=== PATIENT | male | born 1985 | race African-American/Black ===

== ENCOUNTER 2019-03-15 09:54 | Inpatient (IN) | payer OTHER ==
[~2019-03-15] VITALS: Ht 182.9 cm; Wt 86.6 kg
--- NOTE | 2019-03-15 10:04 | NUR ---
patient [id number], from the street, c/o RLQ pain radiating to lower back, +nause vomiting, and diarrhea x 4 days, patient states probably from the tamales I ate. On room air, breathing evenly and unlabored. connected to the monitor and pulse ox. kept comfortable, will continue to monitor accordingly.
[2019-03-15 10:17] LABS: BASOPHILS % (AUTO) 0.4 % (0.0-2.0); EOSINOPHILS % (AUTO) 2.6 % (0.0-6.0); HEMATOCRIT 51 % (39-51); HEMOGLOBIN 17.2 g/dL (13.5-17.5); LYMPHOCYTES # (AUTO) 1.3 /CMM (0.8-4.8); LYMPHOCYTES % (AUTO) 24.4 % (20.0-44.0); MEAN CORPUSCULAR HGB CONC 34 g/dl (31.0-36.0); MEAN CORPUSCULAR VOLUME 90 fL (80-96); MONOCYTES # (AUTO) 0.5 /CMM (0.1-1.30); MONOCYTES % (AUTO) 10.4 % (2.0-12.0); NEUTROPHILS # (AUTO) 3.2 /CMM (1.8-8.9); NEUTROPHILS % (AUTO) 62.2 % (43.0-81.0); PLATELET COUNT (AUTO) 414 /CMM (150-450); RED BLOOD CELL COUNT(AUTO) 5.61 MIL/uL (4.5-6.0); WHITE BLOOD COUNT (AUTO) 5.1 K/uL (4.3-11.0)
[2019-03-15] MEDS ORDERED: ONDANSETRON HCL/PF 4 MG/2 ML VIAL ONE ×2 (10:18→10:30)
[2019-03-15] MEDS ORDERED: MORPHINE SULFATE INJ 4 MG/ML DISP.SYRIN ONE (10:19)
[2019-03-15 10:25] LABS: CALCIUM, SERUM 9.4 mg/dL (8.5-10.1); CREATININE 1.1 mg/dL (0.6-1.3); POTASSIUM 4.2 mmol/L (3.5-5.1)
[2019-03-15 10:30] LABS: ALBUMIN 4.1 g/dL (3.4-5.0); BILIRUBIN,DIRECT 0.1 mg/dL (0.0-0.2); BILIRUBIN,TOTAL 0.5 mg/dL (0.2-1.0); TOTAL PROTEIN, SERUM 8.8 g/dL (6.4-8.2)
[2019-03-15] MEDS ORDERED: MORPHINE SULFATE INJ 2 MG/ML DISP.SYRIN IV ONE (10:30)
[2019-03-15] MEDS ORDERED: ONDANSETRON HCL/PF 4 MG/2 ML VIAL IVP ONE (10:30)
[2019-03-15] MEDS ORDERED: IV NS 0.9% 1,000 ML BAG IV ONE ×2 (10:30→12:30)
[2019-03-15] MEDS ORDERED: MORPHINE SULFATE INJ 2 MG/ML DISP.SYRIN ONE (10:31)
--- NOTE | 2019-03-15 12:16 | NUR ---
[facility] [phone]
--- NOTE | 2019-03-15 12:24 | NUR ---
SUBMITTED MOVE SHEET AND CALLED HOUSE SUP FOR MS BED
[2019-03-15] MEDS ORDERED: LIDOCAINE VISCOUS 2% UD 15 ML UDC ONE (12:27)
[2019-03-15] MEDS ORDERED: PIPERACILLIN /TAZOBACTAM 3.375 G in IV D5W 50 ML IV ONE (12:30)
[2019-03-15] MEDS ORDERED: HYDROMORPHONE 1 MG/1 ML DISP.SYRIN IV ONE (12:30)
--- NOTE | 2019-03-15 12:36 | NUR ---
Aby from [facility] gave us verbal consent to admit.
--- NOTE | 2019-03-15 12:42 | NUR ---
GOT BED 120-2
--- NOTE | 2019-03-15 12:46 | NUR ---
CALLED [facility]ON[facility]
[2019-03-15] MEDS ORDERED: HYDROMORPHONE 1 MG/1 ML DISP.SYRIN ONE (12:58)
--- NOTE | 2019-03-15 13:09 | NUR ---
NGT IN PLACED ON LEFT NOSTRIL 68CM ON THE NOSETIP, PATIENT TOLERATED PROCEDURE WELL, VERIFIED PLACEMENT BY 2 NURSES, AUSCULTATED. PLACED ON LOW INTERMITTENT SUCTION.
[2019-03-15] MEDS ORDERED: ACETAMINOPHEN 325 MG TABLET PO PRN (14:00)
[2019-03-15] MEDS ORDERED: ONDANSETRON HCL/PF 4 MG/2 ML VIAL IVP PRN (14:00)
[2019-03-15] MEDS ORDERED: MORPHINE SULFATE INJ 2 MG/ML DISP.SYRIN IV PRN (14:00)
[2019-03-15] MEDS ORDERED: MAGNESIUM HYDROXIDE 30 ML UDC PO PRN (14:00)
[2019-03-15] MEDS ORDERED: Z GUARD REMEDY 2 OZ OINT TP PRN (14:00)
[2019-03-15] MEDS ORDERED: MAG HYDROX/AL HYDROX/SIMETH 30 ML UDC PO PRN (14:00)
[2019-03-15] MEDS ORDERED: ZOLPIDEM TARTRATE 5 MG TABLET PO PRN (14:00)
--- NOTE | 2019-03-15 14:11 | NUR ---
report given to kerwin valles for barrera
--- NOTE | 2019-03-15 14:26 | NUR ---
pt transported to 1st floor
[2019-03-15] MEDS: IV NS 0.9% 1,000 ML IV SCH (14:37)
--- NOTE | 2019-03-15 14:45 | NUR ---
RN ADMITTING NOTES RECEIVED PATIENT VIA GUSARAVANAN FROM THE ED. HE IS AOX4, VERBAL, AND AMBULATORY. HE IS ON RA, TOLERATING WELL, NO S/SX OF RESP DISTRESS OR SOB. HE CAME IN FOR N/V FOR MULTIPLE DAYS AND ABDOMINAL PAIN, SMALL BOWEL OBSTRUCTION. ABDOMEN IS SOFT, NON-DISTENDED AND NON-TENDER. PT HAS NG TUBE THAT WAS PLACED IN THE ED, 65 CM IN LENGTH. TOLERATING LOW INTERMITTENT SUCTION WELL, TEIXEIRA COLORED DRAINAGE. SKIN IS INTACT ASIDE FROM PREVIOUS SCARES ON R ELBOW AND LEFT LOWER LEG. PT IS NPO, VERBALIZED UNDERSTANDING. IV SITE ON RAC 18 G IS PATENT AND INTACT, INFUSING NS AT 100 ML/HR. ADMITTING ORDERS ARE IN. SAFETY MEASURES HAVE BEEN IMPLEMENTED, CALL LIGHT IS WITHIN REACH, BED IS IN LOWEST AND LOCKED POSITION, SIDE RAILS UP X2, WILL CONTINUE TO MONITOR FOR ANY CHANGES.
[2019-03-15] MEDS: HYDROCODONE/APAP 5/325MG 1 EACH TABLET PO PRN (15:20)
--- NOTE | 2019-03-15 18:46 | NUR ---
RN NOTES PT HAS REMOVED THE NG TUBE HIMSELF AND IS REFUSING TO HAVE ANOTHER ONE PLACE. DR. MITTAL HAS BEEN PAGED, WAITING FOR CALL BACK.
--- NOTE | 2019-03-15 19:01 | NUR ---
RN NOTES DR. MITTAL MADE AWARE OF NG TUBE REMOVAL BY PATIENT
--- NOTE | 2019-03-15 19:04 | NUR ---
RN CLOSING NOTES PATIENT IS RESTING IN BED COMFORTABLY, DOES NOT SHOW ANY S/SX OF DISTRESS. PT HAD NG TUBE PLACED IN THE ED, PT HAS BEEN COMPLAINING THAT IT WAS UNCOMFORTABLE. AFTER TRYING TO EXPLAIN TO THE PT MULTIPLE TIMES WHY HE NEEDS AN NG TUBE, HE REMOVED IT HIMSELF AND IS REFUSING TO HAVE A NEW ONE PLACE. DR. MITTAL WAS PAGED BUT NO CALL BACK OF YET. SAFETY MEASURES HAVE BEEN IMPLEMENTED, CALL LIGHT IS WITHIN REACH, BED IS IN LOWEST AND LOCKED POSITION, SIDE RAILS UP X2, WILL ENDORSE TO NIGHTSHIFT RN FOR CONTINUITY OF CARE.
--- NOTE | 2019-03-15 19:30 | NUR ---
MS RN OPENING NOTES RECEIVED PATIENT SLEEPING, EASILY AROUSABLE. BREATHING EVEN AND UNLABORED. NOT IN ANY DISTRESS. ON ROOM AIR. NO COMPLAINTS AT THIS TIME. PERIPHERAL IV INFUSING AT 100ML/HR. SAFETY MEASURES IN PLACE. CALL LIGHT WITHIN REACH. BED IN LOW, LOCKED POSITION. WILL CONTINUE TO MONITOR ACCORDINGLY
[2019-03-15 20:00] VITALS: BP 103/63
[2019-03-15 20:34] VITALS: BP 103/63
[2019-03-15] MEDS: MORPHINE SULFATE INJ 2 MG/ML DISP.SYRIN IV PRN (23:26)
--- NOTE | 2019-03-15 23:26 | NUR ---
RN NOTES PATIENT C/O PAIN ON R ARM, 12/21. REQUESTING FOR PAIN MEDS. V/S WNL. MORPHINE 1MG IV GIVEN ORDERED. EXCESS WASTED WITH ANOTHER RN. WILL CONTINUE TO MONITOR
[2019-03-16] MEDS: IV NS 0.9% 1,000 ML IV SCH ×3 (01:00→21:06)
[2019-03-16 02:00] VITALS: BP 106/56
[2019-03-16] MEDS: MORPHINE SULFATE INJ 2 MG/ML DISP.SYRIN IV PRN ×3 (04:32→16:34)
--- NOTE | 2019-03-16 04:32 | NUR ---
RN NOTES PATIENT C/O ABDOMINAL PAIN, 11/20. REQUESTING FOR PAIN MEDS. V/S WNL. MORPHINE 1MG IV GIVEN ORDERED. EXCESS WASTED WITH ANOTHER RN. WILL CONTINUE TO MONITOR
[2019-03-16 04:57] VITALS: BP 105/64
--- NOTE | 2019-03-16 06:52 | NUR ---
MS RN CLOSING NOTES PATIENT IS RESTING IN BED COMFORTABLY. BREATHING EVEN AND UNLABORED. NOT IN ANY DISTRESS. PERIPHERAL IV INFUSING AT 100ML/HR. NO ACUTE CHANGES OVERNIGHT. SAFETY MEASURES IN PLACE, CALL LIGHT IS WITHIN REACH, BED IS IN LOWEST AND LOCKED POSITION, SIDE RAILS UP X2. WILL ENDORSE TO UVALDO TO ONCOMING RN
--- NOTE | 2019-03-16 07:30 | NUR ---
MS/RN NOTE THE PATIENT IS RECEIVED IN BED. ALERT AND ORIENTED X4. DENIES PAIN. IN ROOM AIR AND DENIES SOB. RESPIRATION REGULAR AND UNLABORED. THE PATIENT REFUSES NG TUBE PLACEMENT. ABDOMEN SOFT AND NON-DISTENDED. RAC G 18 PATENT AND NS INFUSING AT 100ML/HR AND NO S/S INFILTRATION NOTED. BE LOW AND LOCKED. SIDE RAILS UP X3. CALL LIGHT WITHIN REACH. WILL CONTINUE TO MONITOR.
[2019-03-16 07:49] LABS: BASOPHILS % (AUTO) 0.6 % (0.0-2.0); EOSINOPHILS % (AUTO) 4.5 % (0.0-6.0); HEMATOCRIT 41 % (39-51); LYMPHOCYTES # (AUTO) 1.5 /CMM (0.8-4.8); LYMPHOCYTES % (AUTO) 33.1 % (20.0-44.0); MEAN CORPUSCULAR HGB CONC 34 g/dl (31.0-36.0); MEAN CORPUSCULAR VOLUME 89 fL (80-96); MONOCYTES # (AUTO) 0.6 /CMM (0.1-1.30); MONOCYTES % (AUTO) 12.8 % (2.0-12.0); NEUTROPHILS # (AUTO) 2.2 /CMM (1.8-8.9); PLATELET COUNT (AUTO) 353 /CMM (150-450); RED BLOOD CELL COUNT(AUTO) 4.59 MIL/uL (4.5-6.0); WHITE BLOOD COUNT (AUTO) 4.4 K/uL (4.3-11.0)
[2019-03-16 08:00] VITALS: BP 106/57
[2019-03-16 08:05] LABS: CALCIUM, SERUM 8.3 mg/dL (8.5-10.1); CREATININE 1.3 mg/dL (0.6-1.3); MAGNESIUM 1.3 mg/dL (1.8-2.4); PHOSPHORUS 3.4 mg/dL (2.5-4.9)
--- NOTE | 2019-03-16 11:07 | NUR ---
MS/RN NOTE DR MITTAL IS MADE AWARE OF ABDOMINAL XRAY RESULT, RECEIVED CLEAR LIQUID DIET ORDER AND AN ORDER OF MAY ADVANCE DIET TOLERATED. THE ORDERS ARE READ BACK, VERIFIED. NOTED AND CARRIED OUT.
[2019-03-16] MEDS: Magnesium 1GM/D5W 100ML PREMIX 100 ML IV SCH ×4 (11:14→16:34)
--- NOTE | 2019-03-16 13:59 | NUR ---
Social service consult requested by Judah Davila MD for homelessness. Pt is a 33 year old male who was admitted to [facility] for bowel obstruction. Pt appeared unkempt and disheveled and was minimally cooperative with SW. Pt was oriented x 4 (person, place, time, and situation). Pt states he is ambulatory. Pt states he is homeless and has been homeless for a minute. Pt denies alcohol and cigarette use, but states he last used methamphetamine about 1 year ago. Pt does not have any next of kin or emergency contacts. Pt receives monthly GR benefits of $221. Pt was receptive to housing and treatment program referrals. 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 also provided pt with the following housing, health, and treatment services referrals: [facility] [address] [place] [address] [address]; , [facility] [address] [place] [address]; , and [facility] [address] [place] [address]; . And, [facility] [place] [address] [facility] [address]; [phone] and [facility] [address] [place] [address]; [phone]. [facility] Homeless Resources Directory and health and mental health clinic referrals were also provided. Pt denies suicidal and homicidal ideation at this time. Pt has signed homeless waiver and it has been placed in his medical chart. Pt will require a TAP card upon discharge. No other services needed at this time. SW is available if needed.
[2019-03-16 16:00] VITALS: BP 112/59
--- NOTE | 2019-03-16 16:42 | NUR ---
MS/RN NOTE THE PATIENT TOLERATED CLEAR LIQUID DIET WELL. DENIES ABDOMINAL PAIN OR DISCOMFORT. ABDOMEN SOFT AND NON-DISTENDED. NO NAUSEA OR VOMITING. NO LOOSE STOOLS. WILL UPGRADE DIET TO FULL LIQUID PER DR MITTAL ORDER.
--- NOTE | 2019-03-16 18:00 | NUR ---
MS/RN NOTED THE PATIENT TOLERATED FULL LIQUID DIET WELL. DENIES NAUSEA OR VOMITING. DENIES ABDOMINAL PAIN/DISCOMFORT. ABDOMEN SOFT AND NON-DISTENDED. WILL UPGRADE DIET PER DR MITTAL ORDER.
--- NOTE | 2019-03-16 18:52 | NUR ---
MS/RN NOTE THE PATIENT IS ALERT AND ORIENTED X4. IN ROOM AIR AND SATURATION IS AT 99%. DENIES SOB. RESPIRATION REGULAR AND UNLABORED. DENIES PAIN. THE PATIENT IN NO APPARENT DISTRESS. RAC G 18 PATENT AND SALINE LOCKED. BED LOW AND LOCKED. SIDE RAILS UP X3. CALL LIGHT WITHIN REACH. WILL ENDORSE TO WELD FITTER.
[2019-03-16 20:00] VITALS: BP 106/56
[2019-03-17 04:00] VITALS: BP 120/63
[2019-03-17] MEDS: IV NS 0.9% 1,000 ML IV SCH (06:25)
--- NOTE | 2019-03-17 06:47 | NUR ---
MS RN NOTES AWAKE & RESPONSIVE. NOT IN ANY DISTRESS. NO SOB NOTED. DENIES ANY PAIN OR DISCOMFORT AT THIS TIME. WITH IVF INFUSING WELL. MONITORED ACCORDINGLY. CALL LIGHT WITHIN REACH. BED IN LOWEST POSITION. SR UP X 2 FOR SAFETY. WILL ENDORSE TO NEXT SHIFT.
[2019-03-17 07:10] LABS: BASOPHILS % (AUTO) 0.7 % (0.0-2.0); EOSINOPHILS % (AUTO) 7.4 % (0.0-6.0); HEMATOCRIT 37 % (39-51); HEMOGLOBIN 12.9 g/dL (13.5-17.5); LYMPHOCYTES # (AUTO) 1.1 /CMM (0.8-4.8); LYMPHOCYTES % (AUTO) 31.8 % (20.0-44.0); MEAN CORPUSCULAR HGB CONC 35 g/dl (31.0-36.0); MEAN CORPUSCULAR VOLUME 89 fL (80-96); MONOCYTES # (AUTO) 0.5 /CMM (0.1-1.30); MONOCYTES % (AUTO) 13.7 % (2.0-12.0); NEUTROPHILS # (AUTO) 1.7 /CMM (1.8-8.9); NEUTROPHILS % (AUTO) 46.4 % (43.0-81.0); PLATELET COUNT (AUTO) 315 /CMM (150-450); RED BLOOD CELL COUNT(AUTO) 4.15 MIL/uL (4.5-6.0); WHITE BLOOD COUNT (AUTO) 3.6 K/uL (4.3-11.0)
--- NOTE | 2019-03-17 07:26 | NUR ---
MS RN OPENING NOTE RECEIVED REPORT FROM [facility] SHIFT NURSE. PT AWAKE IN BED, ALERT AND ORIENTED X 4, ON ROOM AIR, SATURATING WELL, RESPIRATIONS EVEN AND UNLABORED, NO SIGNS OF RESPIRATORY DISTRESS NOTED. IV SITE ON RIGHT AC INTACT, PATENT. NS INFUSING AT 100CC/HR, NO SIGNS OF INFILTRATION NOTED. BED IN LOW POSITION, LOCKED, CALL LIGHT WITHIN REACH. INTRODUCED SELF AND DISCUSSED PLAN OF CARE.
[2019-03-17 07:27] LABS: CREATININE 1.1 mg/dL (0.6-1.3); MAGNESIUM 1.7 mg/dL (1.8-2.4); POTASSIUM 3.8 mmol/L (3.5-5.1)
[2019-03-17] MEDS: HYDROCODONE/APAP 5/325MG 1 EACH TABLET PO PRN (07:43)
--- NOTE | 2019-03-17 07:50 | NUR ---
PT REPORTS PAIN AND DISCOMFORT IN HIS RIGHT ELBOW. UPON ASSESSMENT OBSERVED SLIGHTLLY OPENED WOUND WITH YELLOW PUS 1CM X 1CM. CLEANSED SITE, COVERED WITH MEPILEX, TOOK PHOTOS AND PLACED INTO CHART, WOUND CONSULT PENDING. PROVIDED PRN PAIN MEDICATION TO PT.
--- NOTE | 2019-03-17 08:55 | NUR ---
PT WALKING TO UNIT EXT WITH IV POLE. PT STATED HE IS GOING OUTSIDE TO SMOKE. REQUESTED PT TO SIGN INFORMED CONSENT FOR SMOKING, PLACED INTO CHART. DISCONNECTED IV. ESCORTED PT TO DESIGNATED AREA FOR SMOKING. INA BECKER OBSERVED PT SMOKE BY THE DOOR AND REPORTED SMELLING MARIJUANA. [facility] RELATIONS ADVISER WAS NOTIFIED, ADVISED TO NOTIFY JUDIT. CALLED AND NOTIFIED JUDIT WHO ADVISED TO CALL SECURITY AND PHYSICIAN. SECURITY CALLED, CAME TO UNIT AND SPOKE TO PT REGARDING SMOKING POLICY. PT VERBALIZED UNDERSTANDING. WILL NOTIFY DR. MITTAL.
[2019-03-17] MEDS: Magnesium 1GM/D5W 100ML PREMIX 100 ML IV SCH ×2 (10:38→12:01)
--- NOTE | 2019-03-17 14:20 | NUR ---
REMOVED IV SITE, ALL BELONGINGS ACCOUNTED FOR, FORM SIGNED, DISCHARGE INSTRUCTIONS GIVEN AND EXPLAINED. PT VERBALIZED UNDERSTANDING.
[2019-03-17] MEDS ORDERED: MUPIROCIN OINT 2% 22 GM TUBE TP SCH (14:30)
--- NOTE | 2019-03-17 14:45 | NUR ---
PT LEFT UNIT WITHOUT HIS DISCHARGE PACKET AND WITHOUT TAP CARD
== END 2019-03-17 14:45 | disposition home or self-care (01) | DRG 254 ==
LOC: ER 09:58 → MEDSG1 13:08
PROVIDERS: ADMIT Family Medicine; ATTEND Family Medicine
DX: K31.84 Gastroparesis (principal); K56.609 Unspecified intestinal obstruction, unspecified as to partial versus complete obstruction; E87.6 Hypokalemia; F32.9 Major depressive disorder, single episode, unspecified; F17.210 Nicotine dependence, cigarettes, uncomplicated; F12.90 Cannabis use, unspecified, uncomplicated; W57.XXXA Bitten or stung by nonvenomous insect and other nonvenomous arthropods, initial encounter; F43.10 Post-traumatic stress disorder, unspecified; Z83.3 Family history of diabetes mellitus; Z82.49 Family history of ischemic heart disease and other diseases of the circulatory system; F19.10 Other psychoactive substance abuse, uncomplicated; S51.051A Open bite, right elbow, initial encounter; X58.XXXA Exposure to other specified factors, initial encounter; Y92.9 Unspecified place or not applicable
CPT/HCPCS: 36415; 71045-TC; 74018; 80048-TC; 80061-TC; 80076-TC; 83690-TC; 83735-TC; 84100-TC; 85025-TC; 87081-TC; A6253; G0378; J1170; J2270; J2405; J2543; J3475; J7030; J7060

== ENCOUNTER 2020-08-26 11:52 | Emergency (ER) | payer SELFPAY ==
[~2020-08-26] VITALS: Ht 190.5 cm; Wt 95.7 kg
[2020-08-26 11:58] VITALS: BP 137/68
--- NOTE | 2020-08-26 13:00 | NUR ---
THE PATIENT BIBS FOR EXPOSURE OF STD PER PATIENT. DENIES PAIN. WILL CONTINUE TO MONITOR THE PATIENT.
[2020-08-26] MEDS ORDERED: DOXY100C2 PO (13:19)
[2020-08-26] MEDS ORDERED: LIDOCAINE /MPF 1% VIAL 5 ML VIAL ONE (13:29)
[2020-08-26] MEDS ORDERED: CEFTRIAXONE 1 G VIAL IM ONE (13:30)
[2020-08-26] MEDS ORDERED: CEFTRIAXONE 1 G VIAL ONE (13:30)
--- NOTE | 2020-08-26 13:38 | NUR ---
The patient alert and oriented x4. Patient discharged to home in stable condition. Written and verbal after care instructions given. Patient verbalizes understanding of instruction.
== END 2020-08-26 13:39 | disposition home or self-care (01) ==
LOC: ER 11:52
DX: A64 Unspecified sexually transmitted disease (principal); F32.9 Major depressive disorder, single episode, unspecified; F41.9 Anxiety disorder, unspecified; F43.10 Post-traumatic stress disorder, unspecified
CPT/HCPCS: 87491; 87591; 96372; 99283; J0696; J3490

== ENCOUNTER 2021-03-11 18:42 | Emergency (ER) | payer SELFPAY ==
[~2021-03-11 18:42] MED LIST: DOXY100C2 PO
--- NOTE | 2021-03-11 20:30 | NUR ---
called for triage not in waiting room.
--- NOTE | 2021-03-11 22:47 | NUR ---
CALLED FOR TRIAGE NOT IN WAITING ROOM
== END 2021-03-11 22:47 | disposition left against medical advice (07) ==
LOC: ER 18:49
DX: Z53.21 Procedure and treatment not carried out due to patient leaving prior to being seen by health care provider (principal)

== ENCOUNTER 2021-09-26 14:45 | Emergency (ER) | payer OTHER ==
[~2021-09-26] VITALS: Ht 190.5 cm; Wt 99.8 kg
[2021-09-26 15:26] VITALS: BP 130/60
--- NOTE | 2021-09-26 16:00 | NUR ---
Unable to locate pt in ER- Eloped
--- NOTE | 2021-09-26 16:35 | NUR ---
Yohana montaño in ED - 09/26/21 at 1642 by DARIEN Patient eloped from [facility] CHASIDY ESPINAL notified.
== END 2021-09-26 16:42 | disposition home or self-care (01) ==
LOC: ER 15:04
DX: Z53.21 Procedure and treatment not carried out due to patient leaving prior to being seen by health care provider (principal)